=== PATIENT | male | born 1985 | race Caucasian/White ===

== ENCOUNTER 2016-12-02 21:35 | Emergency (ER) | payer BC ==
[2016-12-02] MEDS ORDERED: Bupivacaine 0.5% 10 ML VIAL ONE (21:48)
[2016-12-02] MEDS ORDERED: HYDROcodone/Acetaminophen 10/325 mg Tablet ONE (22:06)
[2016-12-02] MEDS ORDERED: AMOXicillin 250 MG CAP ONE (22:07)
== END 2016-12-02 22:30 | disposition home or self-care (01) ==
LOC: BURERS 21:35
DX: K08.89 Other specified disorders of teeth and supporting structures (principal); F17.220 Nicotine dependence, chewing tobacco, uncomplicated
CPT/HCPCS: 64400; J3490